=== PATIENT | male | born 2000 | race Two or more races ===

== ENCOUNTER 2023-07-19 18:43 | Emergency (ER) | payer SELFPAY ==
[~2023-07-19] VITALS: Ht 167.6 cm; Wt 70.5 kg
[2023-07-19 19:52] LABS: Basophils # (auto) 0 10 ^3/uL (0-0.2); Basophils % (auto) 0.3 % (0.0-2.0); Eosinophils # (auto) 0 10 ^3/uL (0-0.8); Hematocrit 43.1 % (41.0-53.0); Hemoglobin 14.3 g/dL (13.5-17.5); Lymphocytes # (auto) 3.4 10 ^3/uL (0.4-5.4); Lymphocytes % (auto) 23.3 % (10.0-50.0); Mean Corpuscular Hemoglobin 30.7 pg (28.0-32.0); Mean Corpuscular Hgb Conc. 33.3 g/dL (32.0-36.0); Mean Corpuscular Volume 92.3 fL (80.0-100.0); Monocytes # (auto) 0.8 10 ^3/uL (0-1.3); Monocytes % (auto) 5.7 % (0.0-12.0); Neutrophils # (auto) 10.4 10 ^3/uL (1.6-8.6); Neutrophils % (auto) 70.7 % (37.0-80.0); Red Blood Cells 4.67 10^6/uL (4.5-5.90); White Blood Cell 14.8 10^3/uL (4.4-10.8)
[2023-07-19 20:13] LABS: Alanine Aminotransferase 15 U/L (7-40); Albumin 5.2 g/dL (3.2-4.8); Alkaline Phosphatase 75 U/L (46-116); Anion Gap 9 (5-15); Aspartate Aminotransferase 10 U/L (13-40); BUN/Creatinine Ratio 13.6 (10.0-20.0); Bilirubin, Total 0.4 mg/dL (0.2-1.0); Blood Urea Nitrogen 11 mg/dL (9-23); Calcium 9.6 mg/dL (8.7-10.4); Carbon Dioxide 25 mmol/L (20-30); Chloride 105 mmol/L (98-107); Glucose 110 mg/dL (74-106); Potassium 3.5 mmol/L (3.5-5.1); Sodium 139 mmol/L (136-145); Total Protein 8.2 g/dL (5.7-8.2)
[2023-07-19 20:45] LABS: Urine WBC None Seen /hpf (0 - 3)
[2023-07-19] MEDS ORDERED: CLON0.1T PO (20:54)
[2023-07-19] MEDS ORDERED: HYDR25CA PO (20:54)
[2023-07-19] MEDS ORDERED: ACETAMINOPHEN 325 MG TAB PO ONE (21:00)
[2023-07-19] MEDS ORDERED: KETOROLAC TROMETH 60MG/2ML VIAL IM ONE (21:00)
[2023-07-19] MEDS ORDERED: LORazepam 0.5 MG TAB PO ONE (21:00)
[2023-07-19] MEDS ORDERED: METOCLOPRAMIDE HCL 10 MG TAB PO ONE (21:00)
[2023-07-19 21:03] LABS: Salicylate < 3.0 mg/dL (2.8-20.0)
[2023-07-19 21:17] LABS: Amphetamine Screen, Urine Pos (NEGATIVE); Barbiturate Scree,Urine Neg (NEGATIVE); Benzodiazephine Screen, Urine Neg (NEGATIVE); Cannabinoid Screen, Urine Pos (NEGATIVE); Cocaine Screen, Urine Pos (NEGATIVE); Opiate Scree,Urine Neg (NEGATIVE); Phencyclidine Screen, Urine Neg (NEGATIVE)
[2023-07-19 21:19] LABS: Urine Bacteria FEW /hpf (None Seen); Urine Blood Negative /uL (Negative); Urine Clarity Clear (Clear); Urine Color Yellow (Yellow); Urine Mucus FEW (None Seen); Urine Protein, UAD 1+ (Negative); Urine Specific Gravity 1.029 (1.001-1.035); Urine Sperm PRESENT /hpf (None Seen); Urine Urobilinogen Normal (Negative)
[2023-07-19 21:24] LABS: Acetaminophen < 2.0 UG/ML (10.0-20.0)
[2023-07-20 00:12] VITALS: BP 102/71; PULSE 86; RESP 18; TEMP 97.9; O2SAT 99
== END 2023-07-20 00:16 | disposition home or self-care (01) ==
LOC: ER 18:43
DX: F11.13 Opioid abuse with withdrawal (principal); Z79.899 Other long term (current) drug therapy
CPT/HCPCS: 36415; 80053; 80307; 80320; 80329; 81001; 85025; 96372; 99284; J1885; J8597